=== PATIENT | female | born 1980 | race Caucasian/White ===

== ENCOUNTER 2017-02-09 00:05 | Emergency (ER) | payer SELFPAY ==
[2017-02-09 00:23] VITALS: BP 99/60; PULSE 69; TEMP 98.5; BMI 23.9
[2017-02-09] MEDS ORDERED: IBUPROFEN 600 MG TABLET (FP) PO ONE ×2 (01:40→01:46)
--- NOTE | 2017-02-09 01:42 | PDOC ---
History of Present Illness - General History Source: Patient Exam Limitations: No Limitations - History of Present Illness Initial Comments: 02/09/17 03:16 The patient is a 36-year-old female /A0 with no significant past medical history, and presents to the emergency department with abdominal pain and hematuria for 3 days. She reports that she is experiencing abdominal pain located in the suprapubic region. She also reports pain in the middle lower back. She reports that she has noticed slight blood during urination and small sand-like stones in her urine. She admits to associated frequency and urgency. She reports she had a fever and throat pain 4 days ago. She denies having experienced this before. She reports sick contact with her niece. The patient is a Persian-speaker. The patient denies chest pain, shortness of breath, headache and dizziness. The patient denies chills, nausea, vomit, diarrhea and constipation. The patient denies dysuria. LMP: 7 years ago Allergies: pork products Past Surgical History: None reported Social History: No toxic habits reported Family PMHx: mother had uterine cancer <Shannan Luna - Last Filed: 02/09/17 03:16> <Arelis Cee - Last Filed: 02/10/17 03:58> - General Chief Complaint: Pain Stated Complaint: PAIN Time Seen by Provider: 02/09/17 00:37 Past History <Shannan Luna - Last Filed: 02/09/17 03:16> - Past Medical History Other medical history: denies - Psycho/Social/Smoking Cessation Hx Anxiety: Yes Suicidal Ideation: No Smoking History: Never smoked Have you smoked in the past 12 months: No Hx Alcohol Use: No Substance Use Type: None <Arelis Cee - Last Filed: 02/10/17 03:58> - Past Medical History Allergies/Adverse Reactions: Allergies Allergy/AdvReac Type Severity Reaction Status Date / Time Pork/Porcine Containing Allergy Verified 02/09/17 00:22 Products Home Medications: Ambulatory Orders Ibuprofen [Motrin -] 600 mg PO TID PRN #30 tablet 10/13/14 Ondansetron [Zofran *Odt*] 4 mg SL TID #30 od.tablet 10/13/14 Ibuprofen [Motrin -] 600 mg PO TID #30 tablet 05/07/17 Levofloxacin [Levaquin -] 500 mg PO DAILY #7 tablet 02/09/17 Review of Systems - Review of Systems Able to Perform ROS?: Yes Comments:: 02/09/17 03:16 CONSTITUTIONAL: Absent: fever, chills, diaphoresis, generalized weakness, malaise, loss of appetite HEENT: Absent: rhinorrhea, nasal congestion, throat pain, throat swelling, difficulty swallowing, mouth swelling, ear pain, eye pain, visual changes CARDIOVASCULAR: Absent: chest pain, syncope, palpitations, irregular heart rate, lightheadedness , peripheral edema RESPIRATORY: Absent: cough, shortness of breath, dyspnea with exertion, orthopnea, wheezing, stridor, hemoptysis GASTROINTESTINAL: Present: (+) abdominal pain Absent: abdominal distension, nausea, vomiting, diarrhea, constipation, melena, hematochezia GENITOURINARY: Present: (+) frequency, (+) urgency, (+) hematuria Absent: dysuria, hesitancy, flank pain, genital pain MUSCULOSKELETAL: Present: (+) back pain Absent: arthralgia, joint swelling SKIN: Absent: rash, itching, pallor HEMATOLOGIC/IMMUNOLOGIC: Absent: easy bleeding, easy bruising, lymphadenopathy, frequent infections ENDOCRINE: Absent: unexplained weight gain, unexplained weight loss, heat intolerance, cold intolerance NEUROLOGIC: Absent: headache, focal weakness or paresthesias, dizziness, unsteady gait, seizure, mental status changes, bladder or bowel incontinence PSYCHIATRIC: Absent: anxiety, depression, suicidal or homicidal ideation, hallucinations. <Shannan Luna - Last Filed: 02/09/17 03:16> *Physical Exam - Vital Signs Last Vital Signs Temp Pulse Resp BP Pulse Ox 98.5 F 69 18 99/60 99 02/09/17 00:19 02/09/17 00:19 02/09/17 00:19 02/09/17 00:19 02/09/17 00:19 - Physical Exam Comments: 02/09/17 03:16 GENERAL: Well developed, well nourished. Awake and alert. No acute distress. HEENT: Normocephalic, atraumatic. PERRLA, EOMI. No conjunctival pallor. Sclera are non- icteric. Moist mucous membranes. Oropharynx is clear. NECK: Supple. Full ROM. No JVD. Carotid pulses 2+ and symmetric, without bruits. No thyromegaly. No lymphadenopathy. CARDIOVASCULAR: Regular rate and rhythm. No murmurs, rubs, or gallops. Distal pulses are 2+ and symmetric. PULMONARY: No evidence of respiratory distress. Lungs clear to auscultation bilaterally. No wheezing, rales or rhonchi. ABDOMINAL: (+) Suprapubic tenderness. Soft. Non-distended. No rebound or guarding. No organomegaly. Normoactive bowel sounds. MUSCULOSKELETAL Normal range of motion at all joints. No bony deformities or tenderness. No CVA tenderness. EXTREMITIES: No cyanosis. No clubbing. No edema. No calf tenderness. SKIN: Warm and dry. Normal capillary refill. No rashes. No jaundice. NEUROLOGICAL: Alert, awake, appropriate. Cranial nerves 2-12 intact. No deficits to light touch and temperature in face, upper extremities and lower extremities. No motor deficits in the in face, upper extremities and lower extremities. Normoreflexic in the upper and lower extremities. Normal speech. Toes are down- going bilaterally. Gait is normal without ataxia. PSYCHIATRIC: Cooperative. Good eye contact. Appropriate mood and affect. <Shannan Luna - Last Filed: 02/09/17 03:16> - Vital Signs Last Vital Signs Temp Pulse Resp BP Pulse Ox 98.5 F 69 18 99/60 99 02/09/17 00:19 02/09/17 00:19 02/09/17 00:19 02/09/17 00:19 02/09/17 00:19 <Arelis Cee - Last Filed: 02/10/17 03:58> ED Treatment Course - ADDITIONAL ORDERS Additional order review: Laboratory Results 02/09/17 02:31 Urine Color Yellow Urine Appearance Cloudy Urine pH 7.0 D Urine Protein 2+ H Urine Glucose (UA) Negative Urine Ketones Negative Urine Blood 3+ H Urine Nitrite Negative Urine Bilirubin Negative Urine Urobilinogen Negative Ur Leukocyte Esterase 3+ H Urine RBC 627 Urine WBC 440 Ur Epithelial Cells Many Urine Yeast Moderate - Medications Given in the ED: ED Medications Discontinued Medications Generic Name Dose Route Start Last Admin Trade Name Freq PRN Reason Stop Dose Admin Ibuprofen 600 mg 02/09/17 01:40 02/09/17 01:49 Motrin - PO 02/09/17 01:41 600 mg ONCE ONE Administration <Shannan Luna - Last Filed: 02/09/17 03:16> Medical Decision Making - Medical Decision Making 02/10/17 03:56 Pt comes with dysuria, and bladder pain. UA is cloudy. She will be treated with levaquin, as she has a UTI/Cystitis. She has been asked to follow with her PMD and with [facility]. She understands that she may have an infection that is resistant to levaquin and that she must return for worsening symptoms. <Arelis Cee - Last Filed: 02/10/17 03:58> *DC/Admit/Observation/Transfer - Attestations Scribe Attestion: 02/09/17 03:17 Documentation prepared by Shannan Luna, acting as biomedical equipment tech for Arelis Cee MD. <Shannan Luna - Last Filed: 02/09/17 03:16> - Discharge Dispostion Admit: No <Arelis Cee - Last Filed: 02/10/17 03:58> Diagnosis at time of Disposition: UTI (urinary tract infection), Dysuria - Discharge Dispostion Disposition: HOME Condition at time of disposition: Stable - Prescriptions Prescriptions: Levofloxacin [Levaquin -] 500 mg PO DAILY #7 tablet Ibuprofen [Motrin -] 600 mg PO TID #30 tablet - Referrals Referrals: Romina Alejo MD [Staff Physician] - - Patient Instructions Printed Discharge Instructions: Acute Cystitis
[2017-02-09 02:37] LABS: URINE APPEARANCE CLOUDY; URINE BILIRUBIN NEGATIVE (NEGATIVE); URINE COLOR YELLOW; URINE GLUCOSE (UA) NEGATIVE (NEGATIVE); URINE KETONE NEGATIVE (NEGATIVE); URINE NITRITE NEGATIVE (NEGATIVE); URINE UROBILINOGEN NEGATIVE E.U./dl (0.2-1.0)
[2017-02-09 02:39] LABS: URINE BLOOD 3+ (NEGATIVE); URINE LEUK ESTERASE 3+ (NEGATIVE); URINE PROTEIN 2+ (NEGATIVE)
[2017-02-09 02:44] LABS: URINE RBC 627 /hpf (0-3); URINE WBC 440 /hpf (3-5); YEAST MODERATE
[2017-02-09] MEDS ORDERED: LEVOFLOXACIN 500 MG TABLET (FP) PO ONE (03:10)
[2017-02-09] MEDS ORDERED: LEVOFLOXACIN 500 MG TABLET (FP) ONE (03:27)
== END 2017-02-09 03:30 | disposition home or self-care (01) ==
LOC: JER 00:05
DX: N30.01 Acute cystitis with hematuria (principal)
CPT/HCPCS: 81003; 81015; 87086; 99282-25